=== PATIENT | male | born 1990 | race Caucasian/White ===

== ENCOUNTER 2023-10-21 23:36 | Emergency (ER) | payer MEDICAID ==
[~2023-10-21] VITALS: Ht 182.9 cm; Wt 75.0 kg
[2023-10-21 23:41] VITALS: BP 153/90; PULSE 96; RESP 14; TEMP 98.9; O2SAT 99
== END 2023-10-21 23:49 ==
LOC: ER 23:37
CPT/HCPCS: 99283